=== PATIENT | male | born 1945 | race African-American/Black ===

== ENCOUNTER 2017-08-01 15:42 | Emergency (ER) | payer MEDICARE, MEDICAID ==
[~2017-08-01] VITALS: Ht 167.6 cm; Wt 66.0 kg
[2017-08-01] MEDS ORDERED: METF850T2 PO (16:05)
[2017-08-01] MEDS ORDERED: UNKNOWN BP MED (16:05)
[2017-08-01] MEDS ORDERED: MORPHINE SULFATE 4 MG/ML CPJ (NOT FOR IM USE) IV STA (17:08)
[2017-08-01] MEDS ORDERED: FAMOTIDINE 20MG/2ML VIAL IV ONE (17:15)
[2017-08-01 18:05] LABS: BASOPHILS % 0.6 % (0.0-2.0); EOSINOPHILS % 3.1 % (0.0-5.0); HEMATOCRIT. 41.4 % (42.0-52.0); HEMOGLOBIN. 14.1 g/dL (14.0-18.0); LYMPHOCYTES % 19.6 % (20.0-50.0); MEAN CORPUSCULAR VOLUME 102.7 fL (80.0-94.0); NEUTROPHILS % 63.7 % (40.0-76.0); PLATELET 238 x1000/uL (130-400); RED BLOOD CELL COUNT 4.03 mill/uL (4.7-6.1); RED CELL DISTRIBUTION WIDTH 13.8 % (11.6-14.6)
[2017-08-01 18:11] LABS: CARBON DIOXIDE 26 mEq/L (21-32); CHLORIDE 105 mEq/L (98-107)
[2017-08-01 18:38] LABS: CLARITY URINE CLEAR (CLEAR); COLOR URINE YELLOW (YELLOW); GLUCOSE URINE NEGATIVE (NEGATIVE); KETONES URINE NEGATIVE (NEGATIVE); LEUKOCYTE ESTERASE URINE NEGATIVE (NEGATIVE); NITRITE URINE NEGATIVE (NEGATIVE); OCCULT BLOOD URINE 2+ (NEGATIVE); PROTEIN URINE NEGATIVE (NEGATIVE); SPECIFIC GRAVITY URINE 1.015 (1.005-1.030); UROBILINOGEN URINE 0.2 E.U./dL (0.2-1.0)
[2017-08-01 21:27] VITALS: BP 132/88
== END 2017-08-01 21:28 | disposition home or self-care (01) ==
LOC: ER 17:53
DX: R10.31 Right lower quadrant pain (principal); E11.9 Type 2 diabetes mellitus without complications; I10 Essential (primary) hypertension; F17.210 Nicotine dependence, cigarettes, uncomplicated
CPT/HCPCS: 36415; 74176; 80053; 81001; 83690; 85025; 96374; 96375; 99285; J2270; J3490

== ENCOUNTER 2022-11-01 13:17 | Emergency (ER) | payer MEDICARE, MEDICAID ==
[~2022-11-01] VITALS: Ht 165.1 cm; Wt 66.0 kg
[~2022-11-01 13:17] MED LIST: METF-415 PO; UNKNOWN BP MED
[2022-11-01 13:33] VITALS: BP 122/68
[2022-11-01 14:20] LABS: HEMOGLOBIN. 17.2 g/dL (14.0-18.0); MEAN CORPUSCULAR HEMOGLOBIN 33.3 pg (28.0-32.0); MEAN PLATELET VOLUME 6.9 fl (7.4-10.4); PLATELET 232 x1000/uL (130-400); RED BLOOD CELL COUNT 5.14 mill/uL (4.7-6.1); RED CELL DISTRIBUTION WIDTH 15.4 % (11.6-14.6)
[2022-11-01 14:25] LABS: CHLORIDE 107 mEq/L (98-107)
[2022-11-01 14:33] LABS: PROTHROMBIN TIME 10.8 sec (9.6-11.0)
[2022-11-01 15:09] LABS: PLATELET ESTIMATE NORMAL
== END 2022-11-01 17:06 | disposition left against medical advice (07) ==
LOC: ER 13:17
DX: M79.18 Myalgia, other site (principal); R05.8 Other specified cough; R07.2 Precordial pain; Z20.822 Contact with and (suspected) exposure to COVID-19; I10 Essential (primary) hypertension; E11.9 Type 2 diabetes mellitus without complications
CPT/HCPCS: 36415; 71045; 80053; 85025; 85610; 87426; 87804; 93005; 99285; C9803